=== PATIENT | female | born 1965 | race Caucasian/White ===

== ENCOUNTER 2016-07-03 09:11 | Emergency (ER) | payer OTHER ==
[~2016-07-03] VITALS: Ht 170.2 cm; Wt 114.8 kg
[~2016-07-03 09:11] MED LIST: ALBU0.0912; BUPR300T70; DULO30EC; FLO110; OMEP20EC4; QUET150T
[2016-07-03 09:14] VITALS: BP 150/93
[2016-07-03] MEDS ORDERED: DIAZ5TAB7 PO (09:17)
--- NOTE | 2016-07-03 09:44 | NUR ---
Patient ambulated to bed 04.
--- NOTE | 2016-07-03 09:50 | NUR ---
PATIENT PRESENTS TO ED WITH C/O COUGH AND UPPER BACK PAIN X 1 MONTH, HX COPD, PT. SMELLS VERY STRONGLY OF CIGARRETTES; DENIES N/V/D; SKIN IS PINK/WARM/DRY; AAOX4 WITH EVEN AND STEADY GAIT; LUNGS CLEAR BL; HR EVEN AND REGULAR; PT DENIES ANY FEVER OR CP AT THIS TIME; PATIENT STATES UPPER BACK PAIN WHEN COUGHING OF 7/10 AT THIS TIME; VSS; PATIENT POSITIONED FOR COMFORT; HOB ELEVATED; BEDRAILS UP X2; BED DOWN. ER MD MADE AWARE OF PT STATUS.
[2016-07-03] MEDS ORDERED: PROMETH/CODEINE 6.25-10MG/5ML 5 ML UDC PO ONE (10:05)
--- NOTE | 2016-07-03 10:09 | NUR ---
ALLIE PT TAKEN OFF THE UNIT TO XRAY BY KIMBER LOZANO
--- NOTE | 2016-07-03 11:18 | NUR ---
Dr. Greenberg evaluating patient at bedside.
[2016-07-03 11:31] VITALS: BP 120/98
--- NOTE | 2016-07-03 11:31 | NUR ---
Patient discharged with v/s stable. Written and verbal after care instructions given and explained. Patient alert, oriented and verbalized understanding of instructions. Ambulatory with steady gait. All questions addressed prior to discharge. ID band removed. Patient advised to follow up with PMD. Rx of PROMETHAZINE/CODEINE given. Patient educated on indication of medication including possible reaction and side effects. Opportunity to ask questions provided and answered.
== END 2016-07-03 11:31 | disposition home or self-care (01) ==
LOC: MED 09:11
DX: J44.9 Chronic obstructive pulmonary disease, unspecified (principal); J40 Bronchitis, not specified as acute or chronic; R03.0 Elevated blood-pressure reading, without diagnosis of hypertension; K21.9 Gastro-esophageal reflux disease without esophagitis; F17.210 Nicotine dependence, cigarettes, uncomplicated; M54.9 Dorsalgia, unspecified; Z71.6 Tobacco abuse counseling
CPT/HCPCS: 71020; 99284

== ENCOUNTER 2016-12-13 09:16 | Emergency (ER) | payer OTHER ==
[~2016-12-13] VITALS: Ht 170.2 cm; Wt 113.4 kg
[~2016-12-13 09:16] MED LIST changes: +DIAZ5TAB7 PO
[2016-12-13 09:45] VITALS: BP 130/97
--- NOTE | 2016-12-13 09:56 | NUR ---
Patient ambulated to bed 05.
--- NOTE | 2016-12-13 09:59 | NUR ---
PT PRESENTS TO ER W/C/O LEFT SHOULDER AND ARM PAIN X1 YEAR. HX OF COPD, FIBROMYALGIA, DEPRESSION. PT STATES SHE IS FOLLOWED BY A PAIN MANAGEMENT DR.PT STATES SHE FEELS NAUSEOUS BUT DENIES V/D; SKIN IS PINK/WARM/DRY; AAOX4 WITH EVEN AND STEADY GAIT; LUNGS CLEAR BL; HR EVEN AND REGULAR; PT DENIES ANY FEVER, CP, SOB, OR COUGH AT THIS TIME; PATIENT STATES PAIN OF 10/10 AT THIS TIME;PATIENT POSITIONED FOR COMFORT; HOB ELEVATED; BEDRAILS UP X2; BED DOWN. ALL MONITORS IN PLACED;ER MD MADE AWARE OF PT STATUS.
[2016-12-13] MEDS ORDERED: KETOROLAC 30 MG/ML VIAL IM ONE (10:20)
[2016-12-13] MEDS ORDERED: CYCLOBENZAPRINE 10 MG TAB PO ONE (10:25)
--- NOTE | 2016-12-13 10:37 | NUR ---
XRAY AT BEDSIDE.
--- NOTE | 2016-12-13 11:15 | NUR ---
PT C/O PAIN;FACIAL GRIMMACING NOTED;ER MD NOTIFIED;
[2016-12-13] MEDS ORDERED: HYDROcodone/APAP 5/325 MG 1 TAB TAB PO ONE (11:50)
--- NOTE | 2016-12-13 11:55 | NUR ---
GAVE MEDICINE TO PT;PT STATES "DISCHRAGE ME NOW";EXPLAINED TO PT THAT WE NEED TO REEVALUATE MEDICINE AFTER 15 MINUTES;PT DEMONSTRATES UNDERSTANDING;WILL CONTINUE TO MONITOR PT.
[2016-12-13 12:13] VITALS: BP 140/92
== END 2016-12-13 12:13 | disposition home or self-care (01) ==
LOC: MED 09:16
DX: M25.512 Pain in left shoulder (principal); J44.9 Chronic obstructive pulmonary disease, unspecified; F32.9 Major depressive disorder, single episode, unspecified; Z79.899 Other long term (current) drug therapy
CPT/HCPCS: 73030; 96372; 99284; J1885

== ENCOUNTER 2017-07-31 08:14 | Inpatient (IN) | payer OTHER ==
[~2017-07-31] VITALS: Ht 170.2 cm; Wt 166.0 kg
[2017-07-31 08:26] VITALS: BP 127/98
--- NOTE | 2017-07-31 08:40 | NUR ---
52/F BIB DAUGHTER C/O CHRONIC COUGH & rt upper back pain x 1 month, denies trauma. denies sob or cp, althought mild exertion with walking noted. chronic smoker 42 yrs-2 packs a day. PT QUITS SMOKING X 2 WKS. med hx: copd, fibromyalgia, depression. Rx: cymbalta, wellbutrin, vit D, gabapentin, chantex, ventolin inh.DENIES N/V/D; SKIN IS PINK/WARM/DRY; AAOX4 WITH EVEN AND STEADY GAIT; LUNGS CLEAR BL; PATIENT STATES PAIN OF 10/10 AT THIS TIME. PATIENT POSITIONED FOR COMFORT; HOB ELEVATED; BEDRAILS UP X2; BED DOWN. ER MD MADE AWARE OF PT STATUS.
--- NOTE | 2017-07-31 08:44 | NUR ---
Patient being evaluated by DR TORRES at bedside.
--- NOTE | 2017-07-31 08:45 | NUR ---
PT AMB TO BED12
[2017-07-31] MEDS ORDERED: ALBUTEROL SULFATE/IPRATROPIU 3 ML SOL IH ONE ×2 (08:50→10:05)
[2017-07-31] MEDS ORDERED: methylPREDNISolone SS 125 MG in WATER STERILE 2 ML IV ONE (08:50)
[2017-07-31] MEDS ORDERED: methylPREDNISolone SS 125 MG/2 ML VIAL ONE (09:06)
[2017-07-31] MEDS ORDERED: KETOROLAC 30 MG/ML VIAL IVP ONE (09:20)
--- NOTE | 2017-07-31 09:24 | NUR ---
X RAY AT BEDSIDE
[2017-07-31] MEDS ORDERED: MORPHINE SULFATE 2 MG/ML SYR IVP ONE (09:30)
[2017-07-31 09:31] LABS: BASOPHILS # (AUTO) 0.4 K/uL (0.00-0.22); BASOPHILS % (AUTO) 4.3 % (0.0-2.0); EOSINOPHILS # (AUTO) 0.1 K/uL (0-0.4); EOSINOPHILS % (AUTO) 1.1 % (0.0-4.0); HEMATOCRIT 44.5 % (36-48); HEMOGLOBIN 14.9 g/dL (12.0-16.0); LYMPHOCYTES # (AUTO) 2.1 K/uL (2.5-16.5); LYMPHOCYTES % (AUTO) 21.8 % (20.5-51.1); MEAN CORPUSCULAR HEMOGLOBIN 29 pg (27-31); MEAN CORPUSCULAR HGB CONC 33 g/dL (33-37); MEAN CORPUSCULAR VOLUME 86.5 fL (80-94); MONOCYTES # (AUTO) 0.4 K/uL (0.8-1.0); MONOCYTES % (AUTO) 4.3 % (1.7-9.3); NEUTROPHILS # (AUTO) 6.5 K/uL (1.8-7.7); NEUTROPHILS % (AUTO) 68.5 % (42.2-75.2); PLATELET COUNT (AUTO) 282 K/uL (140-450); RED BLOOD CELL COUNT(AUTO) 5.15 MIL/uL (4.20-5.40); RED CELL DISTRIBUTION WIDTH 13.1 % (11.6-13.7); WHITE BLOOD COUNT (AUTO) 9.5 K/uL (4.8-10.8)
[2017-07-31 09:47] LABS: PROTHROMBIN TIME 10.3 secs (10.8-13.4)
[2017-07-31 09:53] LABS: ANION GAP 12.9 (8-16); CARBON DIOXIDE 26.5 mmol/L (21-32); CREATININE 0.9 mg/dL (0.6-1.3); POTASSIUM 4.4 mmol/L (3.5-5.1)
[2017-07-31] MEDS ORDERED: MORPHINE SULFATE 4 MG/ML SYR ONE (09:55)
[2017-07-31] MEDS ORDERED: MORPHINE SULFATE 5 MG/ML VIAL IVP ONE (10:00)
[2017-07-31] MEDS ORDERED: AZITHROMYCIN 500 MG in DEXTROSE 5% 250 ML IV ONE (10:05)
[2017-07-31] MEDS ORDERED: NACL 0.9% 1,000 ML IV ONE (10:05)
[2017-07-31 10:06] LABS: ALBUMIN 3.8 g/dL (3.4-5.0); TOTAL BILIRUBIN 0.3 mg/dL (0.0-1.0)
--- NOTE | 2017-07-31 10:51 | NUR ---
GAVE REPORT TO AMRIT DESAI.
[2017-07-31] MEDS ORDERED: AZITHROMYCIN 500 MG INJ VIAL IV ONE (11:00)
[2017-07-31] MEDS ORDERED: cefTRIAXone 1,000 MG VIAL ONE (11:00)
--- NOTE | 2017-07-31 11:47 | NUR ---
pt said pain is 7/10 after morphine administration. b/p 102/63
[2017-07-31] MEDS ORDERED: LORazepam 2 MG/ML VIAL IVP PRN (12:00)
[2017-07-31] MEDS ORDERED: HYDROcodone/APAP 5/325 MG 1 TAB TAB PO PRN ×2 (12:00)
[2017-07-31] MEDS: NACL 0.9% 1,000 ML IV SCH (12:00)
[2017-07-31] MEDS ORDERED: ACETAMINOPHEN 325 MG TAB PO PRN (12:00)
[2017-07-31] MEDS ORDERED: ONDANSETRON 4 MG/2 ML VIAL IVP PRN (12:00)
[2017-07-31] MEDS ORDERED: methylPREDNISolone SS 40 MG in WATER STERILE 1 ML IV SCH (13:00)
--- NOTE | 2017-07-31 13:06 | NUR ---
PT LYING IN BED ON HER SIDE SHE STATED PAIN WAS 4/10 EKG DONE PT COOPERATIVE SKIN W/D/I/ ELISE AT BEDSIDE. PENDING ADMISSION TO ROOM 120B IV SITE IN L HAND FLUSHED PATENT. PT STATING 93% ON ROOM AIR
--- NOTE | 2017-07-31 13:32 | NUR ---
Patient will be admitted to care of . Admited to . Will go to room. Belongings list completed. Report to .
--- NOTE | 2017-07-31 13:35 | NUR ---
PATIENT BROUGHT OVER TO UNIT FROM THE ER VIA GURNEY. PATIENT WAS ABLE TO AMBULATE FROM THE GURNEY TO THE BATHROOM AND BED. SHE IS AAOX4, HAS NO SIGNS AND SYMPTOMS OF ACUTE DISTRESS NOTED AT THIS TIME. HERE FOR COPD EXACERBATION, NO COMPLAINTS OF SOB AT THIS TIME. ON ROOM AIR. PATIENT HAS IV TO THE LEFT HAND 22G, SITE IS CLEAN, DRY, PATENT AND INTACT. ORIENTED PATIENT TO THE ROOM, EXPLAINED THE CALL LIGHT AND SHE VERBALIZED UNDERSTANDING. BED IN LOWEST POSITION, SIDE RAILS UP X2, CALL LIGHT WITHIN REACH. WILL CONTINUE TO MONITOR.
--- NOTE | 2017-07-31 14:30 | NUR ---
PATIENT COMFORTABLE, ALL NEEDS MET AT THIS TIME.
[2017-07-31] MEDS: ALBUTEROL 0.083% 2.5 MG/3 ML NEBU INH SCH ×2 (15:00→19:20)
[2017-07-31] MEDS: IPRATROPIUM 0.02% 0.5 MG/2.5 ML NEBU INH SCH ×2 (15:00→19:20)
--- NOTE | 2017-07-31 15:01 | NUR ---
UNABLE TO GIVE BREATHING TX DUE TO PT HAVING DIALYSIS DONE ON THEM. Addendum: 07/31/17 at 1518 by Gertrude WILLIS PLACED IN WRONG PT'S NOTES.
--- NOTE | 2017-07-31 15:41 | NUR ---
UNABLE TO GIVE PT NEB TX ON TIME. CHECKED ON PT LATER AND PT REFUSED TX. PT SAID SHE HAD NO SOB HR 103 SAT 94 RR 18 ON RA.
--- NOTE | 2017-07-31 16:44 | NUR ---
GAVE PT LATE BREATHING TX. PT REQUESTED BREATHING TX DUE TO FEELING SOB. PT REFUSED OXYGEN AND WANTED HER BREATHING TX INSTEAD. SEE NEB TX ASSESSMENT FOR VS.
[2017-07-31] MEDS ORDERED: oxyCODONE/APAP 5/325 MG 1 TAB TAB PO PRN (18:15)
[2017-07-31] MEDS ORDERED: LORazepam 1 MG TAB PO PRN (18:15)
[2017-07-31 18:19] VITALS: BP 116/77
--- NOTE | 2017-07-31 19:17 | NUR ---
ENDORSED PATIENT TO ED PHYSICIANS RN FOR CONTINUITY OF CARE. PATIENT IN STABLE CONDITION.
--- NOTE | 2017-07-31 19:18 | NUR ---
RECEIVED BEDSIDE REPORT FROM DAY SHIFT NURSE CARLOS RN, PT STABLE, NO DISTRESS NOTED, SITTING BY BEDSIDE, PT ON ROOM AIR, PT REFUSING O2 NC, IV TO LHAND 22G RUNNING NS @ 75ML/HR INFUSING WELL, INITIAL ASSESSMENT DONE, ALL SAFETY PRECAUTION MET, WILL CONTINUE TO MONITOR.
[2017-07-31] MEDS: oxyCODONE/APAP 5/325 MG 1 TAB TAB PO PRN (20:07)
[2017-07-31] MEDS: methylPREDNISolone SS 40 MG/ML VIAL IVP SCH (20:08)
--- NOTE | 2017-07-31 20:08 | NUR ---
DUE MEDICATION GIVEN, PT C/O PAIN 01/24, PAIN MEDICATION GIVEN, PT TOLERATED WELL, NO DISTRESS NOTED, CALL LIGHT WITHIN REACH, WILL CONTINUE TO MONITOR.
[2017-07-31] MEDS ORDERED: QUEtiapine FUMARATE 100 MG TAB PO PRN (21:50)
--- NOTE | 2017-07-31 21:52 | NUR ---
CALLED DR. CASTILLO REGARDING PT REQUESTING SEROQUEL 300MG PO FOR SLEEPING, AND ALSO GABAPENTIN 300MG HS. STATED UNDERSTANDING AND TO ORDER MEDICATION PT TAKING IT AT HOME. WILL PUT IN ORDER AND CONTINUE WITH ORDERS.
[2017-07-31] MEDS ORDERED: GABAPENTIN 300 MG CAP PO ONE (22:05)
--- NOTE | 2017-07-31 22:12 | NUR ---
MEDICATION ORDERED GIVEN, PT TOLERATED WELL, NO DISTRESS NOTED, CALL LIGHT WITHIN REACH, WILL CONTINUE TO MONITOR.
[2017-08-01] VITALS: BP 99/52
--- NOTE | 2017-08-01 00:01 | NUR ---
CHECKED ON PT, PT SLEEPING, NO DISTRESS NOTED, CALL LIGHT WITHIN REACH, WILL CONTINUE TO MONITOR.
[2017-08-01] MEDS: IPRATROPIUM 0.02% 0.5 MG/2.5 ML NEBU INH SCH ×3 (01:00→13:36)
[2017-08-01] MEDS: ALBUTEROL 0.083% 2.5 MG/3 ML NEBU INH SCH ×3 (01:00→13:36)
[2017-08-01] MEDS: NACL 0.9% 1,000 ML IV SCH (01:20)
--- NOTE | 2017-08-01 01:35 | NUR ---
PT DID NOT WANT TX. NO RESPIRATORY DISTRESS OR SOB NOTED. HR 98 SP02 95 RR 14. PT IS SLEEPING. WILL CONTINUE TO MONITOR.
[2017-08-01] MEDS: oxyCODONE/APAP 5/325 MG 1 TAB TAB PO PRN ×2 (02:58→10:08)
--- NOTE | 2017-08-01 02:58 | NUR ---
PT C/O PAIN 10/, PAIN MEDICATION GIVEN, PT TOLERATED WELL, NO DISTRESS NOTED, CALL LIGHT WITHIN REACH, WILL CONTINUE TO MONITOR.
[2017-08-01] MEDS: methylPREDNISolone SS 40 MG/ML VIAL IVP SCH ×2 (04:30→12:55)
--- NOTE | 2017-08-01 04:30 | NUR ---
DUE MEDICATION ADMINISTERED, PT TOLERATED WELL, NO DISTRESS NOTED, CALL LIGHT WITHIN REACH, WILL CONTINUE TO MONITOR.
--- NOTE | 2017-08-01 06:48 | NUR ---
PATIENT AWAKE AND ALERT. SITTING UP IN BED. SCHEDULED TX ADMINISTERED. TOLERATED WELL. NO ADVERSE SIDE EFFECTS. PATIENT REMAINS ON ROOM AIR, O2 SAT 98%. NO RESPIRATORY DISTRESS NOTED AT THIS TIME. WILL CONTINUE TO MONITOR.
--- NOTE | 2017-08-01 07:18 | NUR ---
ENDORSED PLANS OF CARE TO DAY SHIFT NURSE OFELIA RN, PT STABLE, NO DISTRESS NOTED, CALL LIGHT WITHIN REACH.
--- NOTE | 2017-08-01 07:18 | NUR ---
RECEIVED REPORT FROM NIGHTSHIFT NURSE. PATIENT IS AWAKE AT THIS TIME IN HIGH-FOWLERS POSITION. PATIENT REFUSED OXYGEN. PATIENT SAYS, "I NEVER HAD IT BEFORE SO I DON'T THINK I NEED IT". EXPLAINED THE BENEFITS OF OXYGEN TO PATIENT. PATIENT DOES NOT PRESENT WITH ANY RESPIRATORY DISTRESS OR RESPIRATORY DEPRESSION. PATIENT DOES NOT COMPLAIN OF ANY PAIN. PATIENT ALERT AND ORIENTED X4. UPDATED BOARD IN PATIENT'S ROOM AND PUT BED IN LOWEST POSITION. CALL LIGHT WITHIN REACH OF PATIENT. ENCOURAGED PATIENT TO CALL IF SHE NEEDS HELP WITH ANYTHING. WILL CONTINUE TO MONITOR PATIENT.
[2017-08-01 07:24] LABS: BASOPHILS # (AUTO) 0.1 K/uL (0.00-0.22); BASOPHILS % (AUTO) 0.5 % (0.0-2.0); EOSINOPHILS % (AUTO) 0.1 % (0.0-4.0); HEMATOCRIT 36.7 % (36-48); HEMOGLOBIN 12.6 g/dL (12.0-16.0); LYMPHOCYTES # (AUTO) 1.2 K/uL (2.5-16.5); LYMPHOCYTES % (AUTO) 7.3 % (20.5-51.1); MEAN CORPUSCULAR HEMOGLOBIN 30 pg (27-31); MEAN CORPUSCULAR HGB CONC 34 g/dL (33-37); MEAN CORPUSCULAR VOLUME 86.7 fL (80-94); MONOCYTES # (AUTO) 0.3 K/uL (0.8-1.0); MONOCYTES % (AUTO) 1.7 % (1.7-9.3); NEUTROPHILS # (AUTO) 14.2 K/uL (1.8-7.7); NEUTROPHILS % (AUTO) 90.4 % (42.2-75.2); PLATELET COUNT (AUTO) 273 K/uL (140-450); RED BLOOD CELL COUNT(AUTO) 4.23 MIL/uL (4.20-5.40); RED CELL DISTRIBUTION WIDTH 12.8 % (11.6-13.7)
[2017-08-01 07:35] LABS: ALBUMIN 3.3 g/dL (3.4-5.0); CARBON DIOXIDE 27.6 mmol/L (21-32); CREATININE 1.1 mg/dL (0.6-1.3); MAGNESIUM 1.8 mg/dL (1.8-2.4); POTASSIUM 4.6 mmol/L (3.5-5.1); TOTAL BILIRUBIN 0.3 mg/dL (0.0-1.0)
[2017-08-01 07:46] VITALS: BP 119/70
--- NOTE | 2017-08-01 08:16 | NUR ---
PATIENT REFUSED NICOTINE PATCH. PATIENT SAYS SHE DOES NOT NEED IT.
[2017-08-01 08:23] LABS: WHITE BLOOD COUNT (AUTO) 15.8 K/uL (4.8-10.8)
[2017-08-01] MEDS ORDERED: NICOTINE TRANSD SYS 21 MG/24 HR PATCH TD SCH (09:00)
[2017-08-01] MEDS ORDERED: AZITHROMYCIN 500 MG in NACL 0.9% 250 ML IV SCH (09:00)
[2017-08-01] MEDS ORDERED: ENOXAPARIN 40 MG/0.4 ML SYR SUBQ SCH (09:00)
--- NOTE | 2017-08-01 09:11 | NUR ---
PATIENT APPEARS ANXIOUS AT THIS TIME. PATIENT IS STANDING UP LOOKING OUTSIDE THE WINDOW. PATIENT SAYS, "I'M FEELING ANXIOUS". MEDICATED PATIENT AT THIS TIME WITH PO ATIVAN. WILL CONTINUE TO MONITOR PATIENT.
[2017-08-01] MEDS ORDERED: DEXTROSE 50% 50 ML SYR IVP PRN (09:20)
[2017-08-01] MEDS ORDERED: INSULIN LISPRO SLIDING SCALE 100 UNITS/ML VIAL SUBQ PRN (09:20)
--- NOTE | 2017-08-01 10:09 | NUR ---
PATIENT HAS BEEN SCREENED AND CATEGORIZED LOW NUTRITION RISK. PATIENT WILL BE SEEN WITHIN 7 DAYS OF ADMISSION. 08/08/[address] Addendum: 08/01/17 at [address] PATIENT HAS BEEN RESCREENED AND RECATEGORIZED HIGH NUTRITION RISK. PATIENT WILL BE SEEN WITHIN 1-2 DAYS OF ADMISSION. 08/01/17 - 08/02/[address]
--- NOTE | 2017-08-01 10:41 | NUR ---
CM NOTE INITIAL REVIEW FAXED TO [facility] [phone] REMBERTO # [phone]
[2017-08-01] MEDS ORDERED: BLOOD GLUCOSE MONITORING 1 DEV DEV FS SCH (11:30)
--- NOTE | 2017-08-01 11:38 | NUR ---
PATIENT RESTING IN BED. NO COMPLAINTS OF PAIN AT THIS TIME. WILL CONTINUE TO MONITOR PATIENT.
[2017-08-01] MEDS ORDERED: ALBU0.63 NEB (11:39)
[2017-08-01] MEDS ORDERED: ATRN INH (11:39)
[2017-08-01] MEDS ORDERED: PNEUMOCOCCAL VACCINE 23 MCG/0.5 ML VIAL IMVAC SCH (11:50)
--- NOTE | 2017-08-01 12:05 | NUR ---
CALLED [employer] SUPERVISOR RYAN TO INFORM HER OF 'S ORDER OF A MED NEBULIZER. NO ANSWER FROM RYAN. LEFT A MESSAGE REGARDING THE MED NEBULIZER.
--- NOTE | 2017-08-01 13:04 | NUR ---
PAGED DR. TOSCANO. PATIENT'S FAMILY WAS WONDERING IF SHE IS BEING SENT HOME WITH PAIN MEDICATIONS. AWAITING CALL BACK.
--- NOTE | 2017-08-01 13:10 | NUR ---
PATIENT'S BLOOD SUGAR IS 513. PATIENT REFUSED INSULIN FOR HER HIGH BLOOD SUGAR. NOTIFIED DRPaulo WILL CONTINUE TO MONITOR PATIENT. Addendum: 08/01/17 at 1311 by Devyn Roman II, RN CHARTED ON THE WRONG PATIENT.
--- NOTE | 2017-08-01 13:51 | NUR ---
PATIENT AWAKE, SITTING UP IN BED. SCHEDULED BREATHING TREATMENT ADMINISTERED. PT TOLERATED TX WELL. NO ADVERSE SIDE EFFECTS. NO RESPIRATORY DISTRESS NOTED AT THIS TIME. WILL CONTINUE TO MONITOR.
--- NOTE | 2017-08-01 14:54 | NUR ---
Jon order faxed to Jesus at [facility] at [phone] also order faxed to Lakshmi [employer].
--- NOTE | 2017-08-01 15:02 | NUR ---
PAGED DR. AVILA REGARDING MISSING PRESCRIPTION AND IF PATIENT WILL GET A PAIN MEDICATION PRESCRIPTION. AWAITING CALL BACK.
--- NOTE | 2017-08-01 15:15 | NUR ---
DR. TOSCANO CALLED BACK. DR. TOSCANO INSTRUCTED PATIENT TO FOLLOW UP WITH PRIMARY CARE PHYSICIAN REGARDING PAIN. WILL TELL PATIENT DR'S INSTRUCTIONS.
--- NOTE | 2017-08-01 16:15 | NUR ---
PATIENT UNDERSTOOD ALL DISCHARGE INSTRUCTIONS AND SIGNED THEM. PATIENT AWARE OF NEW PRESCRIPTIONS AND WHICH MEDICATIONS TO STOP. INSTRUCTED PATIENT TO FOLLOW UP WITH HER PRIMARY CARE PHYSICIAN. DISCONTINUED PATIENT'S IV LINE WITH CATHETER STILL INTACT. CUT OFF PATIENT'S ID BAND. PATIENT GATHERED ALL BELONGINGS AND LEFT WITH DAUGHTER IN STABLE CONDITION.
[2017-08-01] MEDS ORDERED: GABAPENTIN 300 MG CAP PO SCH (21:00)
--- NOTE | 2017-08-03 15:50 | NUR ---
CM NOTE DISCHARGE SUMMARY FAXED TO [facility] / FAX# [phone]
== END 2017-08-01 16:15 | disposition home or self-care (01) | DRG 140 ==
LOC: MED 08:14 → MTU 12:00
PROVIDERS: ADMIT Hospitalist; ATTEND Hospitalist
DX: J44.1 Chronic obstructive pulmonary disease with (acute) exacerbation (principal); J80 Acute respiratory distress syndrome; F11.20 Opioid dependence, uncomplicated; M41.9 Scoliosis, unspecified; F33.9 Major depressive disorder, recurrent, unspecified; I10 Essential (primary) hypertension; Z68.43 Body mass index [BMI] 50.0-59.9, adult; E66.01 Morbid (severe) obesity due to excess calories; F17.200 Nicotine dependence, unspecified, uncomplicated; M25.511 Pain in right shoulder; G89.4 Chronic pain syndrome; K21.9 Gastro-esophageal reflux disease without esophagitis; F41.9 Anxiety disorder, unspecified; Z79.899 Other long term (current) drug therapy; Z71.6 Tobacco abuse counseling
CPT/HCPCS: 36415; 71045; 80053; 82550; 82553; 82948; 83605; 83735; 83874; 83880; 84484; 85025; 85610; 85730; 87040; 87081; 90732; 93005; 94640; 96365; 96375; 99285; J0456; J0696; J1650; J1815; J1885; J2270; J2920; J2930; J7030; J7060; J7613; J7620; J7644; Q0092

== ENCOUNTER 2017-09-06 07:41 | Inpatient (IN) | payer OTHER ==
[~2017-09-06] VITALS: Ht 170.2 cm; Wt 116.1 kg
[~2017-09-06 07:41] MED LIST changes: -ALBU0.0912; +ALBU0.63 NEB; +ATRN INH; -DIAZ5TAB7 PO; -FLO110
[2017-09-06 07:48] VITALS: BP 128/89
[2017-09-06 08:29] LABS: HEMATOCRIT 39.2 % (36-48); HEMOGLOBIN 12.9 g/dL (12.0-16.0); MEAN CORPUSCULAR HEMOGLOBIN 29 pg (27-31); MEAN CORPUSCULAR HGB CONC 33 g/dL (33-37); MEAN CORPUSCULAR VOLUME 88.2 fL (80-94); PLATELET COUNT (AUTO) 314 K/uL (140-450); RED BLOOD CELL COUNT(AUTO) 4.44 MIL/uL (4.20-5.40); RED CELL DISTRIBUTION WIDTH 14.6 % (11.6-13.7); WHITE BLOOD COUNT (AUTO) 13.7 K/uL (4.8-10.8)
[2017-09-06 08:41] LABS: ANION GAP 11.1 (8-16); CARBON DIOXIDE 31.6 mmol/L (21-32); CHLORIDE 99 mmol/L (98-107); CREATININE 1.1 mg/dL (0.6-1.3); GFR ARICAN-AMERICAN 67 mL/min (>90); GLUCOSE 153 mg/dL (74-106); POTASSIUM 4.7 mmol/L (3.5-5.1); SODIUM SERUM 137 mmol/L (136-145); UREA NITROGEN, BLOOD 19 mg/dL (7-18)
[2017-09-06 08:47] LABS: ALBUMIN 3.9 g/dL (3.4-5.0); ASPARTATE AMINOTRANSFERASE 23 U/L (15-37); TOTAL BILIRUBIN 0.4 mg/dL (0.0-1.0)
[2017-09-06 08:51] LABS: SALICYLATE < 2.8 mg/dL (2.8-20.0)
[2017-09-06 08:54] LABS: ACETAMINOPHEN < 0.5 ug/ml (10-30)
[2017-09-06 09:05] LABS: LYMPHOCYTES % (MANUAL) 9 % (20-46); MONOCYTES % (MANUAL) 2 % (5-12)
[2017-09-06] MEDS ORDERED: ASPIRIN 325 MG TAB PO ONE (09:45)
[2017-09-06] MEDS ORDERED: LORazepam 2 MG/ML VIAL IVP ONE (09:45)
[2017-09-06 10:29] LABS: PROTHROMBIN TIME 10.8 secs (10.8-13.4)
[2017-09-06 10:37] LABS: THYROID STIMULATING HORMONE 0.63 uIU/mL (0.34-3.74)
[2017-09-06 10:42] LABS: D-DIMER < 100 ng/ml (0-400)
[2017-09-06] MEDS ORDERED: NACL 0.9% 1,000 ML IV ONE (11:35)
[2017-09-06] MEDS ORDERED: ACETAMINOPHEN 325 MG TAB PO PRN (11:45)
[2017-09-06] MEDS ORDERED: MORPHINE SULFATE 2 MG/ML SYR IVP PRN (11:45)
[2017-09-06] MEDS ORDERED: ALBUTEROL 0.083% 2.5 MG/3 ML NEBU IH PRN (11:45)
[2017-09-06] MEDS ORDERED: ONDANSETRON 4 MG/2 ML VIAL IVP PRN (11:55)
[2017-09-06 13:30] VITALS: BP 133/76
[2017-09-06] MEDS: ALBUTEROL 0.083% 2.5 MG/3 ML NEBU IH SCH ×2 (13:38→19:14)
[2017-09-06] MEDS: IPRATROPIUM 0.02% 0.5 MG/2.5 ML NEBU IH SCH ×2 (13:38→19:14)
[2017-09-06] MEDS: LIDOCAINE 5% 1 EA PATCH TP SCH (14:28)
[2017-09-06 16:00] VITALS: BP 126/88
[2017-09-06 18:49] LABS: APPEARANCE,URINE SL CLOUDY (CLEAR); BILIRUBIN,URINE NEGATIVE (NEGATIVE); BLOOD, URINE 3+ (NEGATIVE); COLOR,URINE YELLOW (YELLOW); LEUKOCYTE ESTERASE ,URINE TRACE (NEGATIVE); NITRITE, URINE NEGATIVE (NEGATIVE); PH,URINE 5.5 (5.0-9.0); UGLUCOSE NEGATIVE (NEGATIVE)
[2017-09-06 19:12] LABS: BARBITURATE, URINE NEG. ng/ml (NEG <=200); BENZODIAZEPINE, URINE NEG. ng/mL (NEG <=200); CANNABINOID, URINE NEG. ng/mL (NEG <=50); COCAINE, URINE NEG. ng/mL (NEG <=300); OPIATE, URINE POS. ng/mL (NEG <=2000); PHENCYCLIDINE SCREEN,URINE NEG. ng/mL (NEG <=25)
[2017-09-06 20:00] VITALS: BP 144/90
[2017-09-06 20:44] LABS: RBC,URINE 50-80 /HPF (0-5); WBC,URINE 0-5 (RARE) /HPF (0-5)
[2017-09-06] MEDS: CARVEDILOL 3.125 MG TAB PO SCH (20:48)
[2017-09-06] MEDS ORDERED: ATORVASTATIN 20 MG TAB PO SCH (21:00)
[2017-09-07] VITALS: BP 155/94
[2017-09-07] MEDS: ALBUTEROL 0.083% 2.5 MG/3 ML NEBU IH SCH ×3 (01:00→13:00)
[2017-09-07] MEDS: IPRATROPIUM 0.02% 0.5 MG/2.5 ML NEBU IH SCH ×3 (01:00→13:00)
[2017-09-07] MEDS ORDERED: diphenhydrAMINE 50 MG/ML VIAL IVP PRN (03:55)
[2017-09-07 04:00] VITALS: BP 167/99
[2017-09-07 06:35] LABS: BASOPHILS % (AUTO) 0.3 % (0.0-2.0); EOSINOPHILS # (AUTO) 0.1 K/uL (0-0.4); EOSINOPHILS % (AUTO) 1.2 % (0.0-4.0); HEMATOCRIT 39.5 % (36-48); HEMOGLOBIN 13.5 g/dL (12.0-16.0); LYMPHOCYTES # (AUTO) 2.1 K/uL (2.5-16.5); LYMPHOCYTES % (AUTO) 16.7 % (20.5-51.1); MEAN CORPUSCULAR HEMOGLOBIN 30 pg (27-31); MEAN CORPUSCULAR HGB CONC 34 g/dL (33-37); MEAN CORPUSCULAR VOLUME 87.8 fL (80-94); MONOCYTES # (AUTO) 0.6 K/uL (0.8-1.0); NEUTROPHILS # (AUTO) 9.5 K/uL (1.8-7.7); NEUTROPHILS % (AUTO) 76.8 % (42.2-75.2); PLATELET COUNT (AUTO) 369 K/uL (140-450); RED CELL DISTRIBUTION WIDTH 14.4 % (11.6-13.7); WHITE BLOOD COUNT (AUTO) 12.3 K/uL (4.8-10.8)
[2017-09-07 06:57] LABS: ALBUMIN 4.3 g/dL (3.4-5.0); ANION GAP 15.3 (8-16); CARBON DIOXIDE 30.9 mmol/L (21-32); CREATININE 0.8 mg/dL (0.6-1.3); POTASSIUM 4.2 mmol/L (3.5-5.1)
[2017-09-07 07:24] LABS: TOTAL BILIRUBIN 0.6 mg/dL (0.0-1.0)
[2017-09-07 08:00] VITALS: BP 154/96
[2017-09-07] MEDS: QUEtiapine FUMARATE 100 MG TAB PO SCH ×2 (09:00→10:46)
[2017-09-07] MEDS ORDERED: DULoxetine 30 MG CAPDR PO SCH (09:00)
[2017-09-07] MEDS ORDERED: PANTOPRAZOLE 40 MG TABEC PO SCH (09:00)
[2017-09-07] MEDS ORDERED: ENOXAPARIN 40 MG/0.4 ML SYR SUBQ SCH (09:00)
[2017-09-07] MEDS ORDERED: buPROPion 150 MG TABER PO SCH (09:00)
[2017-09-07] MEDS ORDERED: ASPIRIN 81 MG TAB.CHEW PO SCH (09:00)
[2017-09-07] MEDS: CARVEDILOL 3.125 MG TAB PO SCH (09:24)
[2017-09-07] MEDS ORDERED: QUET300T26 (11:31)
[2017-09-07 12:00] VITALS: BP 136/88
[2017-09-07 12:06] LABS: CREATINE KINASE MB 2.6 ng/mL (0-3.6)
[2017-09-07] MEDS: LIDOCAINE 5% 1 EA PATCH TP SCH (15:18)
[2017-09-07] MEDS ORDERED: QUEtiapine FUMARATE 100 MG TAB PO SCH (21:00)
== END 2017-09-07 15:50 | disposition home or self-care (01) | DRG 52 ==
LOC: MED 07:41 → MTU 11:45
PROVIDERS: ADMIT Hospitalist; ATTEND Hospitalist
DX: G93.41 Metabolic encephalopathy (principal); Z68.41 Body mass index [BMI] 40.0-44.9, adult; I10 Essential (primary) hypertension; R41.82 Altered mental status, unspecified; J44.9 Chronic obstructive pulmonary disease, unspecified; K21.9 Gastro-esophageal reflux disease without esophagitis; F32.9 Major depressive disorder, single episode, unspecified; G47.00 Insomnia, unspecified; E66.9 Obesity, unspecified; G89.29 Other chronic pain; F41.9 Anxiety disorder, unspecified; F17.210 Nicotine dependence, cigarettes, uncomplicated; G47.30 Sleep apnea, unspecified; Y92.89 Other specified places as the place of occurrence of the external cause; Z79.899 Other long term (current) drug therapy; T42.4X5A Adverse effect of benzodiazepines, initial encounter
CPT/HCPCS: 36415; 70450; 71045; 80053; 80305; 81001; 82550; 82553; 84443; 84484; 85025; 85379; 85610; 87081; 93005; 94640; 96374; 99285; C1758; G0480; G0482; J1200; J1650; J2060; J7030; J7613; J7644; Q0092